=== PATIENT | female | born 1995 | race Two or more races ===

== ENCOUNTER 2023-08-11 15:05 | Emergency (ER) | payer MEDICAID, OTHER ==
[~2023-08-11] VITALS: Ht 157.5 cm; Wt 97.5 kg
[2023-08-11 15:41] VITALS: BP 143/94; PULSE 93; RESP 18; TEMP 98; O2SAT 97
[2023-08-11] MEDS ORDERED: AUG875T PO (16:41)
[2023-08-11] MEDS ORDERED: CEPH500C PO (16:41)
[2023-08-11] MEDS ORDERED: DexAMETHasone SOD PHOS 10MG/1ML VIAL INJ IM ONE (16:45)
[2023-08-11] MEDS ORDERED: cefTRIAXone SOD 1,000 MG VL IM ONE (16:45)
[2023-08-11] MEDS ORDERED: HYDR-3682 PO (17:29)
[2023-08-11] MEDS ORDERED: DOXY-286 PO (17:29)
== END 2023-08-11 17:33 | disposition home or self-care (01) ==
LOC: EDBD 15:05 → ER 15:05
DX: R21 Rash and other nonspecific skin eruption (principal); R51.9 Headache, unspecified
CPT/HCPCS: 96372; 99284; J0696; J1100

== ENCOUNTER 2023-09-02 20:21 | Emergency (ER) | payer MEDICAID ==
[~2023-09-02] VITALS: Ht 157.5 cm; Wt 98.0 kg
[~2023-09-02 20:21] MED LIST: AUG875T PO; CEPH500C PO; DOXY-286 PO; HYDR-3682 PO
[2023-09-02 21:37] LABS: COVID19 ANTIGEN SOFIA FIA NEGATIVE (NEGATIVE); Rapid Influenza A Negative (Negative); Rapid Influenza B Negative (Negative)
[2023-09-02] MEDS ORDERED: METH4PAK PO (23:38)
[2023-09-02] MEDS ORDERED: AZITTAB PO (23:38)
[2023-09-02 23:47] VITALS: BP 136/95; PULSE 68; RESP 20; TEMP 98.1; O2SAT 99
== END 2023-09-02 23:50 | disposition home or self-care (01) ==
LOC: ER 20:24
DX: J32.9 Chronic sinusitis, unspecified (principal); Z79.2 Long term (current) use of antibiotics; Z79.899 Other long term (current) drug therapy; Z88.1 Allergy status to other antibiotic agents; Z88.8 Allergy status to other drugs, medicaments and biological substances; Z20.822 Contact with and (suspected) exposure to COVID-19
CPT/HCPCS: 36415; 87426; 87804